=== PATIENT | male | born 2000 | race Two or more races ===

== ENCOUNTER 2022-12-19 20:09 | Emergency (ER) | payer BC, MEDICAID ==
[~2022-12-19] VITALS: Ht 175.3 cm; Wt 71.0 kg
[2022-12-19] MEDS ORDERED: IBUP-1454 PO (23:44)
[2022-12-19] MEDS ORDERED: KETOROLAC TROMETH 30 MG/ML 1ML VIAL IM ONE (23:45)
[2022-12-20 02:23] VITALS: BP 114/65; PULSE 62; RESP 12; TEMP 97.9; O2SAT 96
== END 2022-12-20 00:05 | disposition home or self-care (01) ==
LOC: ER 20:11
DX: R10.9 Unspecified abdominal pain (principal)
CPT/HCPCS: 96372; 99283; J1885